=== PATIENT | male | born 1950 | race Caucasian/White ===

== ENCOUNTER → 2018-07-27 09:43 | Outpatient (CLI) | payer MEDICARE, OTHER, SELFPAY ==
--- NOTE | 2018-07-27 09:55 | AAAS_ITS ---
Reason For Study: AAA screening Aorta Measurements Aorta Doppler Measurements Proximal aorta measures1.4 x 1.4cm. in cross- Peak systolic flow velocities within the proximal sectional axis. aorta measure 99.4 cm/sec. Proximal aorta measures1.4cm. in longitudinal Peak systolic flow velocities within the mid aorta axis. measure 87.6 cm/sec. Mid aorta measures1.2 x 1.3cm. in cross-sectional Peak systolic flow velocities within the distal axis. aorta measure 85.7 cm/sec. Mid aorta measures1.3cm. in longitudinal axis. Distal aorta measures1.2 x 1.2cm. in cross- sectional axis. Distal aorta measures1.3cm. in longitudinal axis. Left Iliac Artery Left iliac artery measures .74 cm. in the longitudinal axis. Left iliac artery measures .72 x .79 cm. in the cross-sectional axis. Peak systolic velocity in the left iliac artery measures 132.0 cm/sec. Right Iliac Artery Right iliac artery measures .65 cm. in the longitudinal axis. Right iliac artery measures .63 x .68 cm. in the cross-sectional axis. Peak systolic velocity in the right iliac artery measures 167.0 cm/sec. Procedure Aorta IVC Iliac vasculature or bypass grafts 16008. Exam performed in department. Interpretation Summary The dimensions of the intra-abdominal aorta appear normal, without evidence of aneurysmal dilatation. The iliac arteries are also normal in size bilaterally. The intra-abdominal aorta and iliac arteries appear patent, demonstrating normal, pulsatile arterial flow and normal peak systolic velocities. Ordering Physician: GUICHO JENSEN Performed By: Yee Engel RVT
== END ==
DX: I10 Essential (primary) hypertension (principal); E78.5 Hyperlipidemia, unspecified; Z87.891 Personal history of nicotine dependence
CPT/HCPCS: 76706